=== PATIENT | female | born 1965 | race Caucasian/White ===

== ENCOUNTER 2017-04-22 16:15 | Outpatient (RCR) | payer OTHER ==
[~2017-04-22 16:15] MED LIST: ALAVERT10 M1 PO; ANUSOL-HC SUPPO25 MG RC; CELEXA 20MG20 MG/TAB PO; CEPHALEXIN500 M1 PO; CITALOPRAM10 MG PO; CLARITIN REDITA10 MG PO; CLARITIN10 MG PO; FLEXERIL 1010 MG/TAB PO; GLUCOPHAGE500 MG/TAB; HCTZ 25MG TAB25 MG PO; LEVOTHYROXINE PO; LIDOCAINE HC20 MG/M1 MM; LORTAB 5/500 501 TAB PO; LOVENOX100 MG/ML SC; NAPROSYN500 MG PO; NORCO 325 MG-51 TAB PO; PERCOCET 325 MG1 TA2 PO; PROMETHAZINE12.5 M5 PO; SINGULAIR10 MG PO; SYNTHROID 0.10.15 MG PO; VALIUM 5MG T5 MG/TAB PO; WARFARIN SODIUM5 MG PO; WARFARIN2 MG PO; ZOFRAN 4MG T4 MG/TAB PO; ZYRTEC
[2017-04-25] MEDS ORDERED: ANTIVERT 25MG25 MG PO (10:33)
[2017-04-25] MEDS ORDERED: VALIUM 5MG T5 MG/TAB PO (10:33)
== END 2017-04-24 | disposition home or self-care (01) ==
LOC: WSPT
DX: M17.0 Bilateral primary osteoarthritis of knee (principal); I10 Essential (primary) hypertension
CPT/HCPCS: G0283-GP

== ENCOUNTER 2017-04-25 09:24 | Emergency (ER) | payer OTHER ==
[~2017-04-25] VITALS: Ht 167.6 cm; Wt 136.4 kg
[2017-04-25 09:28] VITALS: TEMP 97.6
[2017-04-25] MEDS ORDERED: VALIUM 5MG T5 MG/TAB PO (10:33)
[2017-04-25] MEDS ORDERED: ANTIVERT 25MG25 MG PO (10:33)
[2017-04-25 10:48] LABS: BASO % 0.5 % (0.0-2.0); EOS % 0.4 % (0-4.0); GRAN # 5.4 (1.4-6.5); GRAN % 70.1 % (42.2-75.2); LYMPH # 1.7 (1.2-3.4); LYMPH % 21.8 % (20.0-51.0); MEAN CELL VOLUME 86 fl (80.0-100.0); MEAN CORPUSCULAR HGB CONC 32 g/dl (33.0-37.0); MEAN PLATELET VOLUME 9.7 fl (7.4-10.4); MONO # 0.5 (0.1-0.6); PLATELET COUNT 232 K/mm3 (130-400); RED BLOOD COUNT 4.08 M/mm3 (4.10-5.30); REDCELL DISTRIBUTION WIDTH-CV 14.8 % (11.5-14.5); WHITE BLOOD COUNT 7.7 K/mm3 (4.8-10.8)
[2017-04-25 10:49] LABS: HEMOGLOBIN 11.3 g/dl (12.5-16.0); MEAN CORPUSCULAR HEMOGLOBIN 28 pg (27.0-31.0)
[2017-04-25 10:53] LABS: INR 2.3 (0.8-3.0); PROTHROMBIN TIME 26.7 SECONDS (9.7-12.8)
[2017-04-25 11:01] LABS: CALCIUM 8.9 mg/dL (8.4-10.2); CREATININE, serum 0.74 mg/dL (0.52-1.25); POTASSIUM 4.1 mmol/L (3.4-5.0)
[2017-04-25 13:12] VITALS: BP 122/72; PULSE 68
== END 2017-04-25 13:17 | disposition home or self-care (01) ==
LOC: COL.ER 09:24
PROVIDERS: Emergency Medicine
DX: H83.03 Labyrinthitis, bilateral (principal); R42 Dizziness and giddiness; Z79.01 Long term (current) use of anticoagulants; Z79.84 Long term (current) use of oral hypoglycemic drugs

== ENCOUNTER 2017-05-09 07:00 | Outpatient (RCR) | payer OTHER ==
[~2017-05-09 07:00] MED LIST changes: +ANTIVERT 25MG25 MG PO
== END 2017-07-15 10:52 ==
LOC: WSPT 07:00
DX: M17.0 Bilateral primary osteoarthritis of knee (principal); I10 Essential (primary) hypertension

== ENCOUNTER → 2017-06-12 | Outpatient (CLI) | payer BC | LOC: MC.RAD 09:00 | DX: Z12.31 Encounter for screening mammogram for malignant neoplasm of breast (principal) ==

== ENCOUNTER 2017-08-05 13:51 | Outpatient (RCR) | payer OTHER ==
[~2017-08-05 13:51] MED LIST changes: -CELEXA 20MG20 MG/TAB PO; +CELEXA40 MG PO; +COUMADIN 5MG5 MG/TAB PO; -SYNTHROID 0.10.15 MG PO; +SYNTHROID0.2 MG/TAB PO; -WARFARIN2 MG PO
== END 2017-08-27 13:28 | disposition home or self-care (01) ==
LOC: WSOH 13:51
DX: S60.221A Contusion of right hand, initial encounter (principal); S60.211A Contusion of right wrist, initial encounter; Y00.XXXA Assault by blunt object, initial encounter; Y92.219 Unspecified school as the place of occurrence of the external cause; Y99.0 Civilian activity done for income or pay; Z79.01 Long term (current) use of anticoagulants; Z79.891 Long term (current) use of opiate analgesic; Z91.040 Latex allergy status

== ENCOUNTER 2017-08-27 19:01 | Emergency (ER) | payer BC ==
[~2017-08-27] VITALS: Ht 167.6 cm; Wt 143.2 kg
[2017-08-27 19:07] VITALS: BP 139/84; PULSE 98; TEMP 98.5
== END 2017-08-27 20:24 | disposition home or self-care (01) ==
LOC: COL.ER 19:01
DX: S66.911A Strain of unspecified muscle, fascia and tendon at wrist and hand level, right hand, initial encounter (principal); I10 Essential (primary) hypertension; E03.9 Hypothyroidism, unspecified; Z86.711 Personal history of pulmonary embolism; Z79.01 Long term (current) use of anticoagulants; W24.0XXA Contact with lifting devices, not elsewhere classified, initial encounter

== ENCOUNTER → 2018-03-26 | Outpatient (CLI) | payer BC | LOC: COL.RAD 09:45 | DX: Z08 Encounter for follow-up examination after completed treatment for malignant neoplasm (principal); R51 Headache; Z86.011 Personal history of benign neoplasm of the brain | CPT/HCPCS: A9585 ==

== ENCOUNTER → 2018-06-12 | Outpatient (CLI) | payer BC | LOC: MC.RAD 09:00 | DX: Z12.31 Encounter for screening mammogram for malignant neoplasm of breast (principal) ==

== ENCOUNTER 2019-07-03 06:39 | Day surgery (SDC) | payer BC ==
[~2019-07-03] VITALS: Ht 165.1 cm; Wt 132.6 kg
[2019-07-03 07:19] VITALS: BP 125/59; PULSE 75; TEMP 98.6
[2019-07-03] MEDS ORDERED: ZEBETA 5MG5 MG PO (07:25)
[2019-07-03] MEDS ORDERED: SYNTHROID0.175 MG PO (07:26)
[2019-07-03] MEDS ORDERED: COUMADIN 22.5 MG/TAB PO (07:27)
[2019-07-03] MEDS ORDERED: HCTZ12.5TAB PO (07:28)
[2019-07-03] MEDS ORDERED: EFFEXOR-XR150 MG PO (07:28)
[2019-07-03] MEDS ORDERED: COZAAR 25MG25 MG/TAB PO (07:29)
[2019-07-03] MEDS ORDERED: LIPITOR 40MG TA40 MG PO (07:30)
[2019-07-03] MEDS ORDERED: ALDACTONE 25MG25 M1 PO (07:30)
[2019-07-03] MEDS ORDERED: LOVENOX120 MG/0.8 SQ (07:31)
--- NOTE | 2019-07-03 07:32 | NUR ---
TO BRIE AT 0655- CALL LIGHT IN REACH
[2019-07-03 08:25] VITALS: BP 121/65; PULSE 77; TEMP 97.8
[2019-07-03 08:40] VITALS: BP 130/72; PULSE 75
--- NOTE | 2019-07-03 08:40 | NUR ---
PATIENT RESTS COMFORTABLY IN CHAIR. LESS DROWSY, GIVEN MUFFIN AND JUICE. O2 SATS 93% ON RA. SIT PATIENT UP IN RECLINER, 02 SATS TO 97%. DENIES PAIN.
[2019-07-03 08:55] VITALS: BP 140/87; PULSE 75
--- NOTE | 2019-07-03 08:55 | NUR ---
PATIENT RETURNED FROM ENDO PROCEDURE VIA CART. PATIENT AMBULATES FROM CART TO RECLINER WITH RN ASSIST. MONITORS ON AND ALARMS SET. CALL LIGHT WITHIN REACH. REPORT RECEIVED FROM ALICE CONNER. VSS AND WNL. FAMILY BROUGHT FROM WAITING ROOM. PATIENT DROWSY BUT ANSWERS QUESTIONS APPROPIATELY. PATIENT DENIES PAIN OR NAUSEA. ALLOW PATIENT TO REST.
[2019-07-03 09:10] VITALS: BP 129/69; PULSE 77
--- NOTE | 2019-07-03 09:10 | NUR ---
CONTINUES TO REST IN CHAIR. EATING MUFFIN AND DRINKING JUICE WITHOUT N/V. DENIES PAIN.
[2019-07-03 09:25] VITALS: BP 129/65; PULSE 79
--- NOTE | 2019-07-03 09:25 | NUR ---
PATIENT OUT OF GOWN AND INTO OWN CLOTHING. IV DC'D. DISCHARGE INSTRUCTIONS REVIEWED AND PAPER COPIES GIVEN TO PATIENT. VERBAL UNDERSTANDING GIVEN, DENIES QUESTIONS AND INSTRUCTIONS SIGNED.
--- NOTE | 2019-07-03 09:35 | NUR ---
PATIENT ESCORTED TO EXIT VIA WHEELCHAIR BY STAFF. DISCHARGED TO HOME WITH RIDE IN PRIVATE VEHICLE @ [id number]
== END 2019-07-03 09:35 | disposition home or self-care (01) ==
LOC: SDCO 06:39
DX: Z12.11 Encounter for screening for malignant neoplasm of colon (principal); D50.9 Iron deficiency anemia, unspecified; E03.9 Hypothyroidism, unspecified; I10 Essential (primary) hypertension; E78.00 Pure hypercholesterolemia, unspecified; E11.9 Type 2 diabetes mellitus without complications; Z90.710 Acquired absence of both cervix and uterus; Z91.048 Other nonmedicinal substance allergy status; Z90.49 Acquired absence of other specified parts of digestive tract
CPT/HCPCS: J2250; J2405; J3010; J7030

== ENCOUNTER → 2019-07-21 | Outpatient (CLI) | payer BC ==
[~2019-07-21] MED LIST changes: +ALDACTONE 25MG25 M1 PO; +COUMADIN 22.5 MG/TAB PO; +COZAAR 25MG25 MG/TAB PO; +EFFEXOR-XR150 MG PO; +HCTZ12.5TAB PO; +LIPITOR 40MG TA40 MG PO; +LOVENOX120 MG/0.8 SQ; +SYNTHROID0.175 MG PO; +ZEBETA 5MG5 MG PO
== END ==
LOC: MC.RAD 06-04 08:30
DX: Z12.31 Encounter for screening mammogram for malignant neoplasm of breast (principal); I10 Essential (primary) hypertension

== ENCOUNTER 2020-06-07 11:45 | Outpatient (RCR) | payer BC | END 2020-06-14 | disposition home or self-care (01) | LOC: WSPT | DX: M17.0 Bilateral primary osteoarthritis of knee (principal); M25.571 Pain in right ankle and joints of right foot ==

== ENCOUNTER 2020-10-13 16:30 | Outpatient (RCR) | payer BC | END 2020-10-24 | LOC: WSPT → WSC | DX: M54.41 Lumbago with sciatica, right side (principal); M25.561 Pain in right knee; M25.562 Pain in left knee ==

== ENCOUNTER 2020-11-02 16:28 | Outpatient (RCR) | payer BC | END 2021-01-19 10:13 | disposition home or self-care (01) | LOC: WSC 16:28 | DX: M17.0 Bilateral primary osteoarthritis of knee (principal); M54.5 Low back pain ==

== ENCOUNTER 2020-12-24 21:19 | Emergency (ER) | payer BC ==
[~2020-12-24] VITALS: Ht 165.1 cm; Wt 142.3 kg
[2020-12-24 21:21] VITALS: TEMP 97.7
[2020-12-24 22:06] LABS: BASO # 0.1 (0.0-0.2); BASO % 0.6 % (0.0-2.0); EOS # 0.1 (0.0-0.7); EOS % 0.7 % (0-4.0); GRAN # 5.4 (1.4-6.5); GRAN % 60.5 % (42.2-75.2); HEMATOCRIT 32.2 % (37.0-47.0); HEMOGLOBIN 10.5 g/dl (12.5-16.0); LYMPH # 2.7 (1.2-3.4); LYMPH % 30.4 % (20.0-51.0); MEAN CELL VOLUME 83 fl (80.0-100.0); MEAN CORPUSCULAR HEMOGLOBIN 27 pg (27.0-31.0); MEAN CORPUSCULAR HGB CONC 33 g/dl (33.0-37.0); MEAN PLATELET VOLUME 9.7 fl (7.4-10.4); MONO # 0.6 (0.1-0.6); MONO % 6.8 % (1.7-9.3); PLATELET COUNT 245 K/mm3 (130-400); RED BLOOD COUNT 3.88 M/mm3 (4.10-5.30); REDCELL DISTRIBUTION WIDTH-CV 15.2 % (11.5-14.5)
[2020-12-24 22:12] LABS: INR 2.2 (0.8-3.0); PROTHROMBIN TIME 24.5 SECONDS (9.7-12.8)
[2020-12-24 22:17] LABS: ALBUMIN 3.9 gm/dL (3.5-5.0); BILIRUBIN,TOTAL 0.2 mg/dL (0.0-1.0); CALCIUM 8.2 mg/dL (8.4-10.2); CREATININE, serum 0.65 (0.52-1.25); POTASSIUM 3.7 mmol/L (3.4-5.0); TOTAL PROTEIN 6.9 gm/dL (6.4-8.2)
[2020-12-25 00:31] VITALS: BP 131/71; PULSE 74
== END 2020-12-25 00:35 | disposition home or self-care (01) ==
LOC: COL.ER 21:19
PROVIDERS: Emergency Medicine
DX: S80.812A Abrasion, left lower leg, initial encounter (principal); M79.641 Pain in right hand; M25.562 Pain in left knee; Z79.01 Long term (current) use of anticoagulants; W10.9XXA Fall (on) (from) unspecified stairs and steps, initial encounter
CPT/HCPCS: J3010

== ENCOUNTER → 2021-06-27 | Outpatient (CLI) | payer BC | LOC: MC.RAD 08:00 | DX: Z12.31 Encounter for screening mammogram for malignant neoplasm of breast (principal) ==

== ENCOUNTER 2021-12-03 19:49 | Emergency (ER) | payer BC ==
[~2021-12-03] VITALS: Ht 167.6 cm; Wt 150.0 kg
[2021-12-03 21:34] LABS: BASO % 0.5 % (0.0-2.0); EOS % 0.5 % (0.0-4.0); GRAN # 5.3 K/mm3 (1.4-6.5); HEMOGLOBIN 11.8 g/dl (12.5-16.0); LYMPH # 0.9 K/mm3 (1.2-3.4); LYMPH % 13.2 % (20.0-51.0); MEAN CELL VOLUME 90 fl (80.0-100.0); MEAN CORPUSCULAR HEMOGLOBIN 30 pg (27-31); MEAN CORPUSCULAR HGB CONC 34 g/dl (33.0-37.0); MEAN PLATELET VOLUME 10.3 fl (7.4-10.4); MONO # 0.4 K/mm3 (0.1-0.6); MONO % 5.7 % (1.7-9.3); PLATELET COUNT 224 K/mm3 (130-400); RED BLOOD COUNT 3.91 M/mm3 (4.10-5.30); REDCELL DISTRIBUTION WIDTH-CV 16.6 % (11.5-14.5)
[2021-12-03 21:51] LABS: ALBUMIN 4.2 gm/dL (3.5-5.0); BILIRUBIN,TOTAL 0.7 mg/dL (0.2-1.2); CALCIUM 8.2 mg/dL (8.4-10.2); CREATININE, serum 1.11 mg/dL (0.57-1.11); POTASSIUM 3.9 mmol/L (3.5-4.5); TOTAL PROTEIN 7.3 gm/dL (6.2-8.1)
[2021-12-03 22:51] LABS: COLLECTION METHOD CLEAN CATCH
[2021-12-03 23:00] LABS: MUCOUS Present (NOT PRESENT); PH 5 (5-8); URINE APPEARANCE Cloudy (CLEAR/HAZY); URINE BACTERIA Occasional /hpf (NONE SEEN); URINE BILIRUBIN Negative (NEGATIVE); URINE BLOOD Negative (NEGATIVE); URINE COLOR Yellow (YELLOW); URINE GLUCOSE Negative (NEGATIVE); URINE KETONE Negative (NEGATIVE); URINE LEUKOCYTE ESTERASE 1+ (NEGATIVE); URINE NITRATE Negative (NEGATIVE); URINE PROTEIN(semi-quant) Negative (NEGATIVE); URINE RBC 0-2 /hpf (0-2); URINE UROBILINOGEN Negative (NEGATIVE)
[2021-12-03] MEDS ORDERED: CEPHALEXIN250 M1 PO (23:28)
[2021-12-04 00:11] VITALS: BP 165/92; PULSE 90; TEMP 98.4
[2021-12-04 00:17] LABS: INR 1.6 (0.8-3.0); PROTHROMBIN TIME 17.5 SECONDS (9.7-12.8)
== END 2021-12-04 00:13 | disposition home or self-care (01) ==
LOC: COL.ER 19:49
PROVIDERS: Emergency Medicine
DX: R10.31 Right lower quadrant pain (principal); R16.2 Hepatomegaly with splenomegaly, not elsewhere classified; K76.89 Other specified diseases of liver; R82.81 Pyuria; Z90.49 Acquired absence of other specified parts of digestive tract
CPT/HCPCS: J2270; J2405; J7120; Q9967

== ENCOUNTER → 2022-07-02 | Outpatient (CLI) | payer BC ==
[~2022-07-02] MED LIST changes: +CEPHALEXIN250 M1 PO
== END ==
LOC: MC.RAD 07:10
DX: Z12.31 Encounter for screening mammogram for malignant neoplasm of breast (principal)

== ENCOUNTER 2024-06-25 21:55 | Inpatient (IN) | payer BC, OTHER ==
[~2024-06-25] VITALS: Ht 162.6 cm; Wt 101.5 kg
[~2024-06-25 21:55] MED LIST changes: -COUMADIN 22.5 MG/TAB PO; +COUMADIN 77.5 MG/TAB PO
[2024-06-25] MEDS ORDERED: NS 1,000 ML IV ONE (22:15)
[2024-06-25] MEDS ORDERED: Ondansetron 4 MG/2 ML VIAL IV ONE (22:15)
[2024-06-25 22:39] LABS: COLLECTION METHOD CLEAN CATCH
[2024-06-25 22:44] LABS: BASO % 0.3 % (0.0-2.0); EOS # 0.1 K/mm3 (0.0-0.7); GRAN # 5.4 K/mm3 (1.4-6.5); GRAN % 55.7 % (42.2-75.2); LYMPH # 3.4 K/mm3 (1.2-3.4); LYMPH % 34.6 % (20.0-51.0); MEAN CELL VOLUME 86 fl (80.0-100.0); MEAN CORPUSCULAR HEMOGLOBIN 29 pg (27-31); MEAN CORPUSCULAR HGB CONC 33 g/dl (33.0-37.0); MEAN PLATELET VOLUME 9.7 fl (7.4-10.4); MONO # 0.8 K/mm3 (0.1-0.6); MONO % 8.2 % (1.7-9.3); PLATELET COUNT 329 K/mm3 (130-400); RED BLOOD COUNT 4.21 M/mm3 (4.10-5.30); REDCELL DISTRIBUTION WIDTH-CV 13.7 % (11.5-14.5)
[2024-06-25 22:54] LABS: HEMATOCRIT 36.3 % (37.0-47.0)
[2024-06-25 22:58] LABS: ALBUMIN 3.8 g/dL (3.4-4.8); BILIRUBIN,TOTAL 0.6 mg/dL (0.2-1.2); C-REACTIVE PROTEIN 0.98 mg/dL (0.00-0.50); CALCIUM 9.8 mg/dL (8.4-10.2); CREATININE, serum 0.91 mg/dL (0.57-1.11); POTASSIUM 3.8 mEq/L (3.5-4.5); TOTAL PROTEIN 7.2 g/dl (6.2-8.1)
[2024-06-25 23:00] LABS: INR 1.2 (0.8-3.0); PROTHROMBIN TIME 13.2 SECONDS (9.7-12.8)
[2024-06-25] MEDS ORDERED: Iohexol 300 - 100 ML VIAL IV ONE (23:19)
[2024-06-25 23:21] LABS: PH 5.5 (5.0-8.5); URINE APPEARANCE CLEAR (CLEAR/HAZY); URINE BLOOD Negative (NEGATIVE); URINE COLOR YEL (YELLOW); URINE GLUCOSE Negative (NEGATIVE); URINE KETONE Negative (NEGATIVE); URINE NITRATE Negative (NEGATIVE); URINE PROTEIN(semi-quant) Negative (NEGATIVE)
[2024-06-25] MEDS ORDERED: NS 50 ML IV SCH (23:21)
[2024-06-25 23:25] LABS: URINE BACTERIA MODERATE /hpf (NONE SEEN); URINE CALCIUM OXALATE CRYSTAL PRESENT (NOT PRESENT)
[2024-06-25] MEDS ORDERED: Ketorolac 30 MG/ML VIAL IV ONE (23:30)
[2024-06-26] VITALS (13 sets, daily range): BP systolic 99–115; BP diastolic 63–72; PULSE 69–88; TEMP 97.6–98
[2024-06-26] MEDS ORDERED: Acetaminophen 500 MG TAB PO PRN (00:15)
[2024-06-26] MEDS ORDERED: LR 1,000 ML IV SCH (00:15)
[2024-06-26] MEDS ORDERED: Morphine 4 MG/ML VIAL IV ONE (00:15)
[2024-06-26] MEDS ORDERED: Morphine 4 MG/ML VIAL IV PRN (00:45)
--- NOTE | 2024-06-26 01:00 | NUR ---
PATIENT ARRIVED TO ROOM 348 VIA CART FROM ED. WAS ABLE TO AMBULATE FROM CART TO BED WITH NO ASSISTANCE. REPORTING PAIN IN RIGHT SIDE OF HER ABDOMEN WHICH IS INTERMITTANT AND BOTH SHARP WELL ACHING. DENIES ANY SHORTNESS OF BREATH OR CHEST PAIN. CALL LIGHT WITHIN REACH. BED LOCKED AND IN LOW POSITION.
--- NOTE | 2024-06-26 01:50 | NUR ---
PATIENT REQUESTING ICE CHIPS TO HELP WITH METALLIC TASTE IN HER MOUTH FOLLOWING CT. DISCUSSED WITH HOSPITALIST, KADY ROSA, WHO OKAYED ICE CHIPS TO BE GIVEN.
[2024-06-26 06:36] LABS: BASO % 0.6 % (0.0-2.0); EOS # 0.1 K/mm3 (0.0-0.7); EOS % 1.3 % (0.0-4.0); GRAN # 3.5 K/mm3 (1.4-6.5); GRAN % 51.2 % (42.2-75.2); HEMOGLOBIN 10.1 g/dl (12.5-16.0); LYMPH # 2.4 K/mm3 (1.2-3.4); LYMPH % 35.4 % (20.0-51.0); MEAN CELL VOLUME 86 fl (80.0-100.0); MEAN CORPUSCULAR HEMOGLOBIN 29 pg (27-31); MEAN CORPUSCULAR HGB CONC 33 g/dl (33.0-37.0); MEAN PLATELET VOLUME 9.8 fl (7.4-10.4); MONO # 0.8 K/mm3 (0.1-0.6); MONO % 11.2 % (1.7-9.3); PLATELET COUNT 230 K/mm3 (130-400); RED BLOOD COUNT 3.53 M/mm3 (4.10-5.30); REDCELL DISTRIBUTION WIDTH-CV 13.9 % (11.5-14.5)
[2024-06-26 06:37] LABS: HEMATOCRIT 30.3 % (37.0-47.0)
[2024-06-26 06:51] LABS: INR 1.1 (0.8-3.0); PROTHROMBIN TIME 12.4 SECONDS (9.7-12.8)
[2024-06-26 06:54] LABS: CALCIUM 8.8 mg/dL (8.4-10.2); CREATININE, serum 0.93 mg/dL (0.57-1.11); POTASSIUM 3.9 mEq/L (3.5-4.5)
--- NOTE | 2024-06-26 08:00 | NUR ---
Patient laying in bed sleeping. Easily awakened with verbal command. A&Ox4. VSS. BP hypotensive. IV CDI, fluids infusing. Reports pain in RT side. Pain medication given when requested. PAtient NPO for possible surgery. Call light within reach
[2024-06-26] MEDS ORDERED: Spironolactone 25 MG TAB PO SCH (09:00)
[2024-06-26] MEDS ORDERED: Atorvastatin 40 MG TAB PO SCH (09:00)
[2024-06-26] MEDS ORDERED: Losartan 25 MG TAB PO SCH (09:00)
[2024-06-26] MEDS ORDERED: Bisoprolol 5 MG TAB PO SCH (09:00)
--- NOTE | 2024-06-26 09:51 | NUR ---
Social work student met with patient this morning. Pt lives in [place] with her , Abdelrahman, who has early onset Alzheimer's and expressed she does not want Abdelrahman to be contacted because of that. PCP is Ellie and pharmacy is [facility]. Pt is independent with [facility] and uses a CPAP for DME. Pt drives self to and from appointments and expressed no concerns with affording medications. Pt completed a DPOA-HC with SW student. Pt listed her son, Flo (p# [phone]) as primary, daughter Teresa (p# [phone]) as secondary, and daughter Michelle (p# [phone]) as third agent. Discharge plan: home.
[2024-06-26] MEDS ORDERED: MOUNJARO15 MG/0.5 SQ (11:24)
[2024-06-26] MEDS ORDERED: AVAPRO75 MG PO (11:25)
[2024-06-26] MEDS ORDERED: WELLBUTRIN XL150 MG PO (11:25)
--- NOTE | 2024-06-26 13:04 | NUR ---
THIS NURSE IS TAKING OVER CARE FOR THIS PATIENT. REPORT RECEIVED FROM DALILA MARTINEZ. AGREE WITH SHIFT ASSESSMENT COMPLETED THIS AM. PATIENT CURRENTLY RESTING IN BED AWAKE WITH FAMILY AT BED SIDE. PATIENT EXPRESSES NE FURTHER NEEDS AT THSI TIME.
[2024-06-26] MEDS ORDERED: Citalopram 20 MG TAB PO SCH (21:00)
[2024-06-27] VITALS (11 sets, daily range): BP systolic 94–121; BP diastolic 59–72; PULSE 70–82; TEMP 97.8–98.3
[2024-06-27 06:32] LABS: BASO % 0.6 % (0.0-2.0); EOS # 0.1 K/mm3 (0.0-0.7); EOS % 1.5 % (0.0-4.0); GRAN # 2.3 K/mm3 (1.4-6.5); GRAN % 48.8 % (42.2-75.2); LYMPH # 1.9 K/mm3 (1.2-3.4); MEAN CELL VOLUME 86 fl (80.0-100.0); MEAN CORPUSCULAR HGB CONC 33 g/dl (33.0-37.0); MEAN PLATELET VOLUME 10.1 fl (7.4-10.4); MONO # 0.5 K/mm3 (0.1-0.6); MONO % 9.9 % (1.7-9.3); PLATELET COUNT 212 K/mm3 (130-400); RED BLOOD COUNT 3.28 M/mm3 (4.10-5.30); REDCELL DISTRIBUTION WIDTH-CV 13.4 % (11.5-14.5)
[2024-06-27 06:34] LABS: HEMATOCRIT 28.3 % (37.0-47.0); HEMOGLOBIN 9.4 g/dl (12.5-16.0); MEAN CORPUSCULAR HEMOGLOBIN 29 pg (27-31)
[2024-06-27 06:54] LABS: CALCIUM 7.9 mg/dL (8.4-10.2); CREATININE, serum 0.78 mg/dL (0.57-1.11); POTASSIUM 3.7 mEq/L (3.5-4.5)
--- NOTE | 2024-06-27 07:45 | NUR ---
Patient sleeping in bed, easily awakened with verbal command. A&Ox4. VSS. IV CDI. Denies pain and discomfort. Call light within reach
--- NOTE | 2024-06-27 13:39 | NUR ---
Data: Patient accepted spiritual care visit offered during Centrifugal Drier Operator rounds. Assessment: Patient is tired, but desired prayer. Plan of Care: Centrifugal Drier Operator provided supportive listening; prayer; and a rosary. Chaplains will remain available as needed/requested while Patient is admitted to this hospital.
[2024-06-28 00:15] VITALS: BP_SYST 108
[2024-06-28 04:06] VITALS: BP 115/71; PULSE 71; TEMP 98.2
[2024-06-28 04:15] VITALS: BP_SYST 115
[2024-06-28 05:37] LABS: BASO % 0.4 % (0.0-2.0); EOS # 0.1 K/mm3 (0.0-0.7); EOS % 1.2 % (0.0-4.0); GRAN # 2.9 K/mm3 (1.4-6.5); GRAN % 50.9 % (42.2-75.2); LYMPH # 2.2 K/mm3 (1.2-3.4); LYMPH % 38.3 % (20.0-51.0); MEAN CELL VOLUME 85 fl (80.0-100.0); MEAN CORPUSCULAR HGB CONC 33 g/dl (33.0-37.0); MEAN PLATELET VOLUME 9.9 fl (7.4-10.4); MONO # 0.5 K/mm3 (0.1-0.6); MONO % 8.8 % (1.7-9.3); PLATELET COUNT 236 K/mm3 (130-400); RED BLOOD COUNT 3.35 M/mm3 (4.10-5.30); REDCELL DISTRIBUTION WIDTH-CV 13.4 % (11.5-14.5)
[2024-06-28 05:58] LABS: HEMATOCRIT 28.5 % (37.0-47.0); HEMOGLOBIN 9.5 g/dl (12.5-16.0); MEAN CORPUSCULAR HEMOGLOBIN 28 pg (27-31)
[2024-06-28 05:59] LABS: C-REACTIVE PROTEIN 0.9 mg/dL (0.00-0.50); CALCIUM 8.4 mg/dL (8.4-10.2); CREATININE, serum 0.75 mg/dL (0.57-1.11); POTASSIUM 4.1 mEq/L (3.5-4.5)
[2024-06-28] MEDS ORDERED: Levothyroxine 0.1 MG,Levothyroxine 0.075 MG PO SCH (07:00)
--- NOTE | 2024-06-28 07:45 | NUR ---
Patient care, medication administration and nursing documentation occurred during a Daylight Savings Time Change. ASSESSMENT COMPLETE FOR STATE GAME [employer]ARD[employer]. pt HAD A PRETTY UNEVENTFUL NIGHT. pt DENIED GENERAL PAIM, CHEST PAIN, PALPITATIONS, SOB, N,V,D OR DIZZINESS. pt EXPRESSED NO ADDITIONAL NEEDS OR CONCERNS AT THIS TIME. CALL LIGHT WITHIN REACH.
[2024-06-28 07:47] VITALS: BP 120/74; PULSE 77; TEMP 98.2
[2024-06-28 08:00] VITALS: BP_SYST 120
--- NOTE | 2024-06-28 09:52 | NUR ---
SHIFT ASSESSMENT COMPLETE. VSS. PATIENT UP TO RECLINER EATING BREAKFAST. ALL MORNING MEDS GIVEN ORDERED. PATIENT REPORTS PAIN 2/10 NO PAIN MEDS REQUESTED. PATIENT STATES NO NEEDS AT THIS TIME. CALL LIGHT IN REACH
[2024-06-28] MEDS ORDERED: COUMADIN 77.5 MG/TAB PO (10:33)
[2024-06-28] MEDS ORDERED: COUMADIN 5MG5 MG/TAB PO (10:33)
[2024-06-28] MEDS ORDERED: ZOFRAN ODT4 MG PO (10:36)
[2024-06-28] MEDS ORDERED: NORCO 325 MG-51 TAB PO (10:38)
[2024-06-28] MEDS ORDERED: CIPRO 500MG TA500 MG PO (10:39)
[2024-06-28] MEDS ORDERED: FLAGYL500 MG PO (10:39)
--- NOTE | 2024-06-28 12:01 | NUR ---
Discharge paperwork reviewed with the patient. Patient verbalized an understanding to follow doctors orders. IV removed, tip intact. Gauze and coban applied. Patient waiting on ride home. No further needs expressed from the patient. Call light within reach
== END 2024-06-28 12:26 | disposition home or self-care (01) | DRG 395 ==
LOC: COL.ER 21:55 → SURG 06-26 00:08
PROVIDERS: Emergency Medicine; Physician Assistant; ADMIT Internal Medicine
DX: K35.80 Unspecified acute appendicitis (principal); Z86.711 Personal history of pulmonary embolism; Z79.01 Long term (current) use of anticoagulants; E03.9 Hypothyroidism, unspecified; I10 Essential (primary) hypertension; E78.5 Hyperlipidemia, unspecified; F32.A Depression, unspecified
CPT/HCPCS: J0780; J1650; J1885; J2270; J2405; J2543; J7030; J7120; Q9967